=== PATIENT | female | born 1980 | race Caucasian/White ===

== ENCOUNTER 2017-02-18 14:08 | Emergency (ER) | payer OTHER, BC ==
[~2017-02-18] VITALS: Ht 162.6 cm; Wt 85.2 kg
[~2017-02-18 14:08] MED LIST: CHOL1000 PO; GABA-113 PO; LORA-741 PO; MULT-506 PO
[2017-02-18 14:11] VITALS: TEMP 36.8; Ht 162.6 cm; Wt 85.2 kg
[2017-02-18] MEDS ORDERED: IBUP-1050 PO (14:17)
[2017-02-18] MEDS ORDERED: ACETAMINOPHEN 500 MG TAB PO STA (15:00)
[2017-02-18] MEDS ORDERED: ONDANSETRON 4MG OD TAB PO STA (15:00)
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
[2017-02-18] MEDS ORDERED: OXYC1TAB3 PO (16:15)
[2017-02-18] MEDS ORDERED: CYCL10TA6 PO (16:15)
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
[2017-02-18 16:47] VITALS: BP 122/76; PULSE 77; O2SAT 98
== END 2017-02-18 16:49 | disposition home or self-care (01) ==
LOC: C.EDB 14:09 → C.EDD 16:49
DX: S06.0X0A Concussion without loss of consciousness, initial encounter (principal); M54.2 Cervicalgia; M25.512 Pain in left shoulder; V43.52XA Car driver injured in collision with other type car in traffic accident, initial encounter